=== PATIENT | male | born 1960 | race African-American/Black ===

== ENCOUNTER 2021-06-14 10:51 | Emergency (ER) | payer MEDICARE, MEDICAID ==
[~2021-06-14] VITALS: Ht 175.3 cm; Wt 145.0 kg
[2021-06-14 10:52] VITALS: BP 192/73
== END 2021-06-14 15:03 | disposition home or self-care (01) ==
LOC: ER 10:59
DX: M54.50 Low back pain, unspecified (principal); E11.9 Type 2 diabetes mellitus without complications; I10 Essential (primary) hypertension; Z98.890 Other specified postprocedural states; Z88.0 Allergy status to penicillin; Z88.5 Allergy status to narcotic agent
CPT/HCPCS: 99281